=== PATIENT | female | born 1955 | race Caucasian/White ===

== ENCOUNTER → 2018-10-08 | Outpatient (CLI) | payer OTHER ==
[~2018-10-08] MED LIST: CRUTCH4 USE; HYDACE5 PO
== END | disposition home or self-care (01) ==
LOC: PLD 14:01 → LAB SHORT 14:01
DX: L57.0 Actinic keratosis (principal); D48.5 Neoplasm of uncertain behavior of skin
CPT/HCPCS: 88305